=== PATIENT | male | born 1980 | race Asian ===

== ENCOUNTER 2019-02-06 13:07 | Emergency (ER) | payer MEDICAID ==
[~2019-02-06] VITALS: Ht 182.9 cm; Wt 118.0 kg
--- NOTE | 2019-02-06 13:11 | NUR ---
DR CASEY BS FOR EXAM. PT DENIES DETOXING IN PAST, SEIZURES. PER EMS: PT WAS AT [facility] ED LAST WEEK. PT REPORTS HE'S INTERESTED IN GOING TO DETOX.
--- NOTE | 2019-02-06 13:27 | NUR ---
VO DR CASEY: CANCEL ATIVAN ORDER
[2019-02-06] MEDS ORDERED: SODIUM CHLORIDE FLUSH 10ML SYR IVF ONE (13:30)
[2019-02-06] MEDS ORDERED: LORazepam 2 MG/ML, 1ML IVPush PRN (13:30)
[2019-02-06] MEDS ORDERED: THIAMINE 100MG TABLET PO ONE (13:30)
[2019-02-06 13:37] VITALS: BP 102/67
[2019-02-06 13:44] LABS: BASOPHILS # (AUTO) 0.02 x10^3/uL (0-0.1); BASOPHILS % (AUTO) 0 % (0-1); EOSINOPHILS # (AUTO) 0.15 x10^3/uL (0-0.4); EOSINOPHILS % (AUTO) 3 % (1-7); LYMPHOCYTES # (AUTO) 1.96 x10^3/uL (1-3.4); LYMPHOCYTES % (AUTO) 37 % (22-44); MD NO; MEAN CORPUSCULAR HEMOGLOBIN 31.2 pg (27.5-34.5); MEAN CORPUSCULAR HGB CONC 33.9 g/dL (33.2-36.2); MEAN CORPUSCULAR VOLUME 92.1 fL (81-97); MEAN PLATELET VOLUME 7.6 fL (7.4-10.4); MONOCYTES # (AUTO) 0.26 x10^3/uL (0.2-0.8); MONOCYTES % (AUTO) 5 % (2-9); NEUTROPHILS % (AUTO) 55 % (42-75); PLATELET COUNT 202 x10^3/uL (130-400); RED BLOOD COUNT 5.07 x10^6/uL (4.38-5.82); RED CELL DISTRIBUTION WIDTH 13.7 % (9.4-14.8)
[2019-02-06 13:55] LABS: ALANINE AMINOTRANSFERASE 140 U/L (12-78); ALBUMIN 3.8 g/dL (3.4-5.0); ANION GAP 10 mmol/L (5-15); CALCIUM 8.1 mg/dL (8.5-10.1); CHLORIDE 108 mmol/L (98-107)
[2019-02-06 13:58] LABS: ALKALINE PHOSPHATASE 99 U/L (45-117); BILIRUBIN,TOTAL 0.7 mg/dL (0.2-1.0); CREATININE 0.78 mg/dL (0.7-1.3); TOTAL PROTEIN 7.6 g/dL (6.4-8.2)
--- NOTE | 2019-02-06 14:02 | NUR ---
PT FOUND WALKING IN [place] BY ROOM; FULLY DRESSED W/ ALL BELONGINGS. PT STATES HE WANTS TO LEAVE; DOESN'T WANT TO STAY FOR DETOX. UNWILLING TO WAIT IN ROOM WHILE I CONTACT DR CASEY. PT ACCOMPANIED TO DC AREA, AMBULATORY W/ SLOW STEADY GAIT.
[2019-02-06] MEDS ORDERED: FOLI-17 PO (14:08)
[2019-02-06] MEDS ORDERED: ATOR-2 PO (14:08)
[2019-02-06] MEDS ORDERED: METF10007 PO (14:08)
[2019-02-06] MEDS ORDERED: ALBU8.5H8 INH (14:08)
[2019-02-06] MEDS ORDERED: INSU100I13 SQ (14:08)
[2019-02-06] MEDS ORDERED: HYDR-826 PO (14:08)
== END 2019-02-06 14:11 | disposition left against medical advice (07) ==
LOC: ED 13:20
DX: K70.10 Alcoholic hepatitis without ascites (principal); F10.129 Alcohol abuse with intoxication, unspecified; E11.65 Type 2 diabetes mellitus with hyperglycemia; E78.00 Pure hypercholesterolemia, unspecified
CPT/HCPCS: 36415; 80053; 85025; 99283